=== PATIENT | female | born 1980 | race Caucasian/White ===

== ENCOUNTER 2017-03-17 07:10 | Inpatient (IN) | payer OTHER ==
[~2017-03-17] VITALS: Ht 162.6 cm; Wt 70.0 kg
[2017-03-17] VITALS (20 sets, daily range): BP systolic 99–149; BP diastolic 55–80
[~2017-03-17 07:10] MED LIST: CIPROFLOXACN500 MG PO; ULTRAM50 M1 PO; ULTRAM50 MG PO
[2017-03-17 08:27] LABS: URINE BILIRUBIN - DIPSTICK NEGATIVE (NEGATIVE); URINE CLARITY CLEAR; URINE COLOR YELLOW; URINE GLUCOSE - DIPSTICK NEGATIVE (NEGATIVE); URINE KETONE NEGATIVE (NEGATIVE); URINE NITRITE - DIPSTICK NEGATIVE (Negative); URINE PROTEIN - DIPSTICK NEGATIVE (NEG-TRACE); URINE SPECIFIC GRAVITY 1.015; URINE UROBILINOGEN - DIPSTICK 0.2 E.U./dL (0.2)
[2017-03-17 08:28] LABS: URINE LEUK ESTERASE SMALL (NEGATIVE)
[2017-03-17 08:31] LABS: BARBITURATES NEGATIVE (NEGATIVE); COCAINE NEGATIVE (NEGATIVE); METHADONE NEGATIVE (NEGATIVE); OXCYCODONE NEGATIVE (NEGATIVE); TETRAHYDROCANNABIONOL NEGATIVE (NEGATIVE); TRICYLIC ANTIDEPRESSANTS NEGATIVE (NEGATIVE)
[2017-03-17 08:37] LABS: URINE BACTERIA RARE hpf; URINE BLOOD DIPSTICK NEGATIVE (NEGATIVE); URINE EPITHELIAL CELLS FEW EPI/hpf (0-FEW); URINE RBC 0-2 RBC/hpf (0-5)
[2017-03-17 10:14] LABS: HEMATOCRIT 34.1 % (37.0-47.0); HEMOGLOBIN 11.4 g/dl (12.0-16.0); IMMATURE GRANULOCYTES 0.8 % (0.0-1.0); MEAN CELL VOLUME 95.3 fL CALC (80.0-100.0); MEAN CORPUSCULAR HGB 31.8 pG CALC (26.0-32.0); MEAN CORPUSCULAR HGB CONC 33.4 g/L CALC (32.0-36.0); NEUT# 7.96 thou/uL (2.00-7.15); RED BLOOD COUNT 3.58 mill/uL (4.20-5.60); RED CELL DISTRI WIDTH 12.6 % (11.5-15.5)
[2017-03-17] MEDS ORDERED: PRE-NATAL PO (10:20)
[2017-03-17] MEDS ORDERED: TYLENOL650 MG PO (10:20)
[2017-03-17] MEDS ORDERED: UNISOM SLEEP25 MG PO (10:21)
[2017-03-17] MEDS ORDERED: ZANTAC 150 MAX150 MG PO (10:22)
[2017-03-17 10:45] LABS: ALBUMIN 3.4 g/dL (3.2-5.0); ALKALINE PHOSPHATASE 129 u/l (38-126); ANION GAP 13 (6-22 (CALC)); BILIRUBIN, TOTAL 0.3 mg/dL (0.0-1.4); BUN 7 mg/dL (7-17); BUN/CREATININE RATIO 14 (12-20 (CALC)); CALCIUM 8.6 mg/dL (8.4-10.2); CARBON DIOXIDE 21 mmol/l (22-30); CHLORIDE 109 mmol/l (95-108); CREATININE 0.6 mg/dL (0.5-1.0); GFR > 60 ML/MIN (>=60 (CALC)); GFR FOR AFR.AMER. > 60 ML/MIN (>=60 (CALC)); GLUCOSE 61 mg/dL (65-105); SGOT/AST 25 u/l (14-36); SGPT/ALT 22 u/l (9-52); SODIUM 139 mmol/l (137-146); TOTAL PROTEIN 6.7 g/dL (6.3-8.2)
[2017-03-18] VITALS (28 sets, daily range): BP systolic 100–138; BP diastolic 51–86
[2017-03-19 06:09] LABS: HEMATOCRIT 25.7 % (37.0-47.0); HEMOGLOBIN 7.2 g/dl (12.0-16.0); IMMATURE GRANULOCYTES 0.5 % (0.0-1.0); MEAN CELL VOLUME 113.7 fL CALC (80.0-100.0); MEAN CORPUSCULAR HGB 31.9 pG CALC (26.0-32.0); NEUT# 9.11 thou/uL (2.00-7.15); RED BLOOD COUNT 2.26 mill/uL (4.20-5.60); RED CELL DISTRI WIDTH 13.2 % (11.5-15.5)
[2017-03-19 06:15] VITALS: BP 106/67
[2017-03-19 09:56] VITALS: BP 100/65
[2017-03-19 17:31] VITALS: BP 104/73
[2017-03-19 19:40] VITALS: BP 105/67
[2017-03-20 07:55] VITALS: BP 127/67
[2017-03-20] MEDS ORDERED: LORTAB 7.57.5 MG PO (09:07)
[2017-03-20] MEDS ORDERED: IBUPROFEN600 MG PO (09:08)
== END 2017-03-20 13:20 | disposition home or self-care (01) | DRG 766 ==
LOC: OB 07:10
PROVIDERS: ADMIT Obstetrics & Gynecology; ATTEND Obstetrics & Gynecology
PROC: 3E033VJ Introduction of Other Hormone into Peripheral Vein, Percutaneous Approach (ICD-10-PCS; 2017-03-17)
PROC: 10D00Z1 Extraction of Products of Conception, Low, Open Approach (ICD-10-PCS; principal; 2017-03-18)
PROC: 0UB70ZZ Excision of Bilateral Fallopian Tubes, Open Approach (ICD-10-PCS; 2017-03-18)
PROC: 0T9B70Z Drainage of Bladder with Drainage Device, Via Natural or Artificial Opening (ICD-10-PCS; 2017-03-19)
DX: O48.0 Post-term pregnancy (principal); F17.210 Nicotine dependence, cigarettes, uncomplicated; O99.334 Smoking (tobacco) complicating childbirth; O36.63X0 Maternal care for excessive fetal growth, third trimester, not applicable or unspecified; O62.0 Primary inadequate contractions; O90.89 Other complications of the puerperium, not elsewhere classified; R33.9 Retention of urine, unspecified; O61.0 Failed medical induction of labor; Z3A.41 41 weeks gestation of pregnancy; Z37.0 Single live birth; Z30.2 Encounter for sterilization

== ENCOUNTER 2020-01-15 | Emergency (ER) | payer OTHER ==
[~2020-01-15] MED LIST changes: +IBUPROFEN600 MG PO; +LORTAB 7.57.5 MG PO; +PRE-NATAL PO; +TYLENOL650 MG PO; +UNISOM SLEEP25 MG PO; +ZANTAC 150 MAX150 MG PO
[2020-01-15 14:14] LABS: URINE BILIRUBIN - DIPSTICK NEGATIVE (NEGATIVE); URINE BLOOD DIPSTICK LARGE (NEGATIVE); URINE COLOR YELLOW; URINE GLUCOSE - DIPSTICK NEGATIVE (NEGATIVE); URINE KETONE TRACE mg/dL (NEGATIVE); URINE LEUK ESTERASE NEGATIVE (NEGATIVE); URINE NITRITE - DIPSTICK NEGATIVE (Negative); URINE PROTEIN - DIPSTICK NEGATIVE (NEG-TRACE); URINE SPECIFIC GRAVITY >=1.030; URINE UROBILINOGEN - DIPSTICK 0.2 E.U./dL (0.2)
[2020-01-15 14:25] LABS: URINE RBC TNTC RBC/hpf (0-5); URINE SQUAMOUS EPITHELIAL CELL FEW EPI/hpf (0-FEW)
[2020-01-15] MEDS ORDERED: FLEXERIL PO (15:56)
[2020-01-15] MEDS ORDERED: PREDNISONE10 MG PO (15:56)
== END 2020-01-15 15:40 | disposition home or self-care (01) ==
DX: M54.41 Lumbago with sciatica, right side (principal); B34.9 Viral infection, unspecified; F17.200 Nicotine dependence, unspecified, uncomplicated

== ENCOUNTER 2020-01-21 | Emergency (ER) | payer OTHER ==
[~2020-01-21] MED LIST changes: +FLEXERIL PO; +PREDNISONE10 MG PO
== END 2020-01-21 14:19 | disposition left against medical advice (07) ==
DX: B34.9 Viral infection, unspecified (principal); M62.830 Muscle spasm of back; F17.210 Nicotine dependence, cigarettes, uncomplicated; Z91.19 Patient's noncompliance with other medical treatment and regimen

== ENCOUNTER 2021-05-29 15:57 | Emergency (ER) | payer OTHER ==
[~2021-05-29] VITALS: Ht 30.5 cm; Wt 60.0 kg
[2021-05-29 16:55] LABS: IMMATURE GRANULOCYTES 0.7 % (0.0-5.0); MEAN CORPUSCULAR HGB 31.6 pG CALC (26.0-32.0); MEAN CORPUSCULAR HGB CONC 31.3 g/dL CAL (32.0-36.0); NEUT# 21.83 thou/uL (2.00-7.15); RED BLOOD COUNT 3.83 mill/uL (4.20-5.60); RED CELL DISTRI WIDTH 11.9 % (11.5-15.5)
[2021-05-29 17:00] LABS: HEMATOCRIT 38.6 % (37.0-47.0); HEMOGLOBIN 12.1 g/dl (12.0-16.0); MEAN CELL VOLUME 100.8 fL CALC (80.0-100.0)
[2021-05-29 17:15] LABS: ALBUMIN 3.7 g/dL (3.2-5.0); ANION GAP 17 (6-22 (CALC)); BILIRUBIN, TOTAL 0.3 mg/dL (0.0-1.4); BUN 14 mg/dL (7-17); CARBON DIOXIDE 19 mmol/l (22-30); CHLORIDE 113 mmol/l (95-108); ETHYL ALCOHOL 0 mg/dl (0-30); MAGNESIUM 2.1 mg/dL (1.6-2.3); POTASSIUM 3.7 mmol/l (3.5-5.1); SODIUM 145 mmol/l (137-146); TOTAL PROTEIN 6.2 g/dL (6.3-8.2)
[2021-05-29 17:16] LABS: ALKALINE PHOSPHATASE 62 u/l (38-126); BUN/CREATININE RATIO 7 (12-20 (CALC)); CREATININE 1.9 mg/dL (0.5-1.0); GFR 29 ML/MIN (>=60 (CALC)); GFR FOR AFR.AMER. 35 ML/MIN (>=60 (CALC)); SGOT/AST 102 u/l (14-36)
[2021-05-29 17:31] LABS: BETA-HCG, QUANT(RESULT NUMBER) <2 mIU/mL
[2021-05-29 17:44] LABS: MYOGLOBIN 6665 ng/mL (0 - 62)
[2021-05-29 17:50] LABS: URINE BILIRUBIN - DIPSTICK NEGATIVE (NEGATIVE); URINE BLOOD DIPSTICK LARGE (NEGATIVE); URINE GLUCOSE - DIPSTICK 250 mg/dL (NEGATIVE); URINE KETONE NEGATIVE (NEGATIVE); URINE LEUK ESTERASE NEGATIVE (NEGATIVE); URINE PH 6.5 (4.5-8.0); URINE PROTEIN - DIPSTICK >=300 mg/dL (NEG-TRACE); URINE SPECIFIC GRAVITY >=1.030; URINE UROBILINOGEN - DIPSTICK 0.2 E.U./dL (0.2)
[2021-05-29 17:51] LABS: URINE COLOR AMBER
[2021-05-29 17:52] LABS: URINE NITRITE - DIPSTICK NEGATIVE (Negative)
[2021-05-29 17:57] LABS: URINE SQUAMOUS EPITHELIAL CELL FEW EPI/hpf (0-FEW)
[2021-05-29] MEDS ORDERED: CLONAZEPAM1 MG PO (18:38)
[2021-05-29] MEDS ORDERED: MONTELUKAST SODI4 MG PO (18:39)
[2021-05-29] MEDS ORDERED: VISTARIL 50MG C50 M1 PO (18:40)
[2021-05-29 19:58] VITALS: BP 127/89
== END 2021-05-29 20:24 | disposition short-term general hospital (02) ==
LOC: ED 15:57 → EDBD 15:57 → ED 17:06
PROVIDERS: Emergency Medicine
DX: I46.9 Cardiac arrest, cause unspecified (principal); E87.2 Acidosis; N17.9 Acute kidney failure, unspecified; K72.00 Acute and subacute hepatic failure without coma; F15.90 Other stimulant use, unspecified, uncomplicated; F12.90 Cannabis use, unspecified, uncomplicated; I48.91 Unspecified atrial fibrillation; J45.909 Unspecified asthma, uncomplicated; Z20.822 Contact with and (suspected) exposure to COVID-19
CPT/HCPCS: J2060

== ENCOUNTER 2021-06-14 10:17 | Observation (INO) | payer OTHER ==
[~2021-06-14 10:17] MED LIST changes: +CLONAZEPAM1 MG PO; +MONTELUKAST SODI4 MG PO; +VISTARIL 50MG C50 M1 PO
[2021-06-14 11:50] LABS: IMMATURE GRANULOCYTES 0.2 % (0.0-5.0); MEAN CELL VOLUME 95.9 fL CALC (80.0-100.0); MEAN CORPUSCULAR HGB 30.7 pG CALC (26.0-32.0); NEUT# 5.81 thou/uL (2.00-7.15); RED BLOOD COUNT 2.96 mill/uL (4.20-5.60); RED CELL DISTRI WIDTH 12.3 % (11.5-15.5)
[2021-06-14 11:51] LABS: HEMATOCRIT 28.4 % (37.0-47.0); HEMOGLOBIN 9.1 g/dl (12.0-16.0)
[2021-06-14 12:04] LABS: D-DIMER 0.93 mg/L (0.19-0.60)
[2021-06-14 12:09] LABS: ACT PARTIAL THROMBO TIME 26.1 SECONDS (20.0-32.5); PROTHROMBIN TIME 10.6 SECONDS (9.0-12.5)
[2021-06-14 12:15] LABS: ALBUMIN 3.3 g/dL (3.2-5.0); ALKALINE PHOSPHATASE 65 u/l (38-126); ANION GAP 10 (6-22 (CALC)); BILIRUBIN, TOTAL 0.2 mg/dL (0.0-1.4); BUN 8 mg/dL (7-17); CHLORIDE 111 mmol/l (95-108); ETHYL ALCOHOL 0 mg/dl (0-30); LIPASE 215 u/l (23-300); POTASSIUM 3.2 mmol/l (3.5-5.1); SGOT/AST 39 u/l (14-36); SODIUM 143 mmol/l (137-146); TOTAL PROTEIN 6.1 g/dL (6.3-8.2)
[2021-06-14 12:29] LABS: BUN/CREATININE RATIO 13 (12-20 (CALC)); CARBON DIOXIDE 25 mmol/l (22-30); CREATININE 0.6 mg/dL (0.5-1.0); GFR > 60 ML/MIN (>=60 (CALC)); GFR FOR AFR.AMER. > 60 ML/MIN (>=60 (CALC))
[2021-06-14 16:25] VITALS: BP 117/72
[2021-06-14 18:05] LABS: URINE BILIRUBIN - DIPSTICK NEGATIVE (NEGATIVE); URINE BLOOD DIPSTICK NEGATIVE (NEGATIVE); URINE COLOR YELLOW; URINE GLUCOSE - DIPSTICK NEGATIVE (NEGATIVE); URINE KETONE NEGATIVE (NEGATIVE); URINE LEUK ESTERASE NEGATIVE (NEGATIVE); URINE PH 5.5 (4.5-8.0); URINE PROTEIN - DIPSTICK NEGATIVE (NEG-TRACE); URINE UROBILINOGEN - DIPSTICK 0.2 E.U./dL (0.2)
[2021-06-14 18:07] LABS: URINE NITRITE - DIPSTICK NEGATIVE (Negative)
[2021-06-14 19:36] VITALS: BP 119/67
[2021-06-14] MEDS ORDERED: VENLAFAXINE HCL75 M1 PO (19:50)
[2021-06-14] MEDS ORDERED: LAMOTRIGINE150 MG PO (19:51)
[2021-06-14] MEDS ORDERED: LAMICTAL100 M1 PO (19:52)
[2021-06-14] MEDS ORDERED: PLAVIX75 MG PO (19:53)
[2021-06-14] MEDS ORDERED: LOPRESSOR25 MG PO (19:53)
[2021-06-14] MEDS ORDERED: MIRTAZAPINE15 MG PO (19:53)
[2021-06-14] MEDS ORDERED: PROAIR HFA IN (19:54)
[2021-06-14] MEDS ORDERED: BENZTROPINE0.5 MG PO (19:55)
[2021-06-14] MEDS ORDERED: BENZONATATE200 MG PO (20:02)
[2021-06-15 03:33] VITALS: BP 103/47
[2021-06-15 05:38] LABS: ANION GAP 11 (6-22 (CALC)); BUN 10 mg/dL (7-17); BUN/CREATININE RATIO 20 (12-20 (CALC)); CARBON DIOXIDE 22 mmol/l (22-30); CHLORIDE 111 mmol/l (95-108); CREATININE 0.5 mg/dL (0.5-1.0); GFR > 60 ML/MIN (>=60 (CALC)); GFR FOR AFR.AMER. > 60 ML/MIN (>=60 (CALC)); SODIUM 139 mmol/l (137-146)
[2021-06-15 05:43] LABS: POTASSIUM 5.1 mmol/l (3.5-5.1)
[2021-06-15 06:20] LABS: HEMATOCRIT 30.1 % (37.0-47.0); HEMOGLOBIN 9.7 g/dl (12.0-16.0); MEAN CORPUSCULAR HGB 30.6 pG CALC (26.0-32.0); MEAN CORPUSCULAR HGB CONC 32.2 g/dL CAL (32.0-36.0); RED BLOOD COUNT 3.17 mill/uL (4.20-5.60); RED CELL DISTRI WIDTH 12.2 % (11.5-15.5)
[2021-06-15 08:17] VITALS: BP 112/69
[2021-06-15] MEDS ORDERED: ONDANSETRON4 MG PO (10:49)
[2021-06-15] MEDS ORDERED: TESSALON PERLE100 MG PO (10:50)
[2021-06-15 11:21] VITALS: BP 99/63
== END 2021-06-15 12:04 | disposition home or self-care (01) ==
LOC: ED 10:17 → ED-I 14:50 → ED 15:07 → MS2 15:08
PROVIDERS: ADMIT Hospitalist; ATTEND Hospitalist
DX: U07.1 COVID-19 (principal); J12.82 Pneumonia due to coronavirus disease 2019; I25.10 Atherosclerotic heart disease of native coronary artery without angina pectoris; J45.909 Unspecified asthma, uncomplicated; D64.9 Anemia, unspecified; F41.9 Anxiety disorder, unspecified; F32.9 Major depressive disorder, single episode, unspecified; I25.2 Old myocardial infarction; F17.200 Nicotine dependence, unspecified, uncomplicated; Z95.5 Presence of coronary angioplasty implant and graft; Z86.74 Personal history of sudden cardiac arrest
CPT/HCPCS: G0378; Q9967

== ENCOUNTER 2024-05-02 13:57 | Emergency (ER) | payer SELFPAY ==
[~2024-05-02] VITALS: Ht 162.6 cm; Wt 50.9 kg
[~2024-05-02 13:57] MED LIST changes: +BENZONATATE200 MG PO; +BENZTROPINE0.5 MG PO; +LAMICTAL100 M1 PO; +LAMOTRIGINE150 MG PO; +LOPRESSOR25 MG PO; +MIRTAZAPINE15 MG PO; +ONDANSETRON4 MG PO; +PLAVIX75 MG PO; +PROAIR HFA IN; +TESSALON PERLE100 MG PO; +VENLAFAXINE HCL75 M1 PO
[2024-05-02 14:12] VITALS: BP 106/67
[2024-05-02] MEDS ORDERED: OFLOXACIN0.3 % OU (14:14)
[2024-05-02 14:15] VITALS: BP 101/67
[2024-05-02] MEDS ORDERED: OLOPATADINE HYD0.2 % OU (14:19)
[2024-05-02] MEDS ORDERED: ALL DAY10 MG PO (14:20)
[2024-05-02 14:40] VITALS: BP 101/67
== END 2024-05-02 14:42 | disposition home or self-care (01) | DRG 125 ==
LOC: ED 13:57
DX: H10.9 Unspecified conjunctivitis (principal)

== ENCOUNTER 2024-05-18 08:13 | Emergency (ER) | payer SELFPAY ==
[~2024-05-18] VITALS: Ht 162.6 cm; Wt 50.8 kg
[~2024-05-18 08:13] MED LIST changes: +ALL DAY10 MG PO; +OFLOXACIN0.3 % OU; +OLOPATADINE HYD0.2 % OU
[2024-05-18 08:19] VITALS: BP 117/79
[2024-05-18] MEDS ORDERED: METOCLOPRAMIDE HCL 10 MG/2 ML SDV IV ONE (08:25)
[2024-05-18 08:30] VITALS: BP 129/77
[2024-05-18] MEDS ORDERED: MAGNESIUM SULFATE HEPTAHYDRATE 50 ML IV ONE (08:30)
[2024-05-18] MEDS ORDERED: DiphenhydrAMINE HCL 50 MG/ML SDV IV ONE (08:30)
[2024-05-18] MEDS ORDERED: ACETAMINOPHEN 500 MG TAB PO ONE (08:30)
[2024-05-18] MEDS ORDERED: SODIUM CHLORIDE 0.9% 1,000 ML IV ONE (08:30)
[2024-05-18 08:53] LABS: BASO% 0.6 % (0-3); EOS% 3.1 % (0-8); HEMATOCRIT 34.7 % (37.0-47.0); HEMOGLOBIN 11.4 g/dl (12.0-16.0); IMMATURE GRANULOCYTES 0.2 % (0.0-5.0); LYMPH% 6.1 % (15-41); MEAN CELL VOLUME 94.8 fL CALC (80.0-100.0); MEAN CORPUSCULAR HGB 31.1 pG CALC (26.0-32.0); MEAN CORPUSCULAR HGB CONC 32.9 g/dL CAL (32.0-36.0); MONO% 9.2 % (2-13); NEUT# 4.37 thou/uL (2.00-7.15); NEUT% 80.8 % (42-76); RED BLOOD COUNT 3.66 mill/uL (4.20-5.60)
[2024-05-18 09:00] VITALS: BP 129/77
[2024-05-18 09:04] LABS: ALBUMIN 3.9 g/dL (3.2-5.0); BILIRUBIN, TOTAL 0.2 mg/dL (0.02-1.3); CREATININE 0.7 mg/dL (0.5-1.0); POTASSIUM 3.9 mmol/l (3.5-5.1); TOTAL PROTEIN 6.5 g/dL (6.3-8.2)
== END 2024-05-18 09:01 | disposition left against medical advice (07) | DRG 103 ==
LOC: ED 08:13
PROVIDERS: Family Medicine
DX: R51.9 Headache, unspecified (principal); J45.909 Unspecified asthma, uncomplicated; F17.210 Nicotine dependence, cigarettes, uncomplicated; Z53.29 Procedure and treatment not carried out because of patient's decision for other reasons
CPT/HCPCS: J3475

== ENCOUNTER 2024-12-11 13:29 | Emergency (ER) | payer OTHER ==
[~2024-12-11] VITALS: Ht 162.6 cm; Wt 42.0 kg
[2024-12-11 13:35] VITALS: BP 105/63
[2024-12-11] MEDS ORDERED: ONDANSETRON 4 MG/TAB ODT PO ONE (13:40)
[2024-12-11 13:45] VITALS: BP 105/68
[2024-12-11] MEDS ORDERED: AMOX/K CLAV875 M1 PO (14:06)
[2024-12-11] MEDS ORDERED: ALBUTEROL108 MCG/AC IN (14:06)
[2024-12-11] MEDS ORDERED: ZOFRAN4 MG/TAB PO (14:06)
[2024-12-11] MEDS ORDERED: BENZONATATE200 MG PO (14:06)
[2024-12-11 14:37] VITALS: BP 105/63
== END 2024-12-11 14:39 | disposition left against medical advice (07) | DRG 204 ==
LOC: ED 13:29
DX: R05.9 Cough, unspecified (principal); R11.2 Nausea with vomiting, unspecified; K02.9 Dental caries, unspecified; K04.7 Periapical abscess without sinus; J45.909 Unspecified asthma, uncomplicated; Z20.822 Contact with and (suspected) exposure to COVID-19